=== PATIENT | female | born 1985 ===

== ENCOUNTER → 2020-02-10 11:11 | Outpatient (BNVA) | payer OTHER, SELFPAY | PROVIDERS: PCP Family Medicine; Referring Provider Family Medicine; Visit Provider Internal Medicine Gastroenterology | DX: R10.13 Epigastric pain (principal); Z86.19 Personal history of other infectious and parasitic diseases | CPT/HCPCS: 99203 ==

== ENCOUNTER 2020-02-23 11:15 | Outpatient (REF) | payer OTHER, SELFPAY ==
[2020-02-23 13:22] LABS: COVID-19 Test Negative (Negative)
== END 2020-02-23 11:16 | disposition home or self-care (01) ==
LOC: HO.LAB 11:15
PROVIDERS: PCP Family Medicine; Visit Provider Internal Medicine
DX: Z20.828 Contact with and (suspected) exposure to other viral communicable diseases (principal)
CPT/HCPCS: 87635

== ENCOUNTER → 2020-02-27 08:31 | Outpatient (BNVA) | payer OTHER, SELFPAY | PROVIDERS: PCP Family Medicine; Visit Provider Internal Medicine Gastroenterology | DX: Z76.89 Persons encountering health services in other specified circumstances (principal) ==

== ENCOUNTER 2020-02-27 15:28 | Outpatient (REF) | payer OTHER, SELFPAY | END 2020-02-27 15:29 | disposition home or self-care (01) | LOC: HO.LNP 15:28 | PROVIDERS: Visit Provider Internal Medicine Gastroenterology | DX: R10.13 Epigastric pain (principal); Z11.0 Encounter for screening for intestinal infectious diseases | CPT/HCPCS: 83013 ==

== ENCOUNTER → 2020-03-13 09:06 | Outpatient (BNVA) | payer OTHER, SELFPAY | PROVIDERS: PCP Family Medicine; Referring Provider Family Medicine; Visit Provider Internal Medicine Gastroenterology | DX: R10.13 Epigastric pain (principal); A04.8 Other specified bacterial intestinal infections; Z88.1 Allergy status to other antibiotic agents; Z91.040 Latex allergy status; Z79.899 Other long term (current) drug therapy | CPT/HCPCS: 99212 ==

== ENCOUNTER 2020-03-13 12:19 | Outpatient (REF) | payer OTHER, SELFPAY ==
[2020-03-13 13:00] LABS: COVID-19 Test Negative (Negative)
== END 2020-03-13 12:20 | disposition home or self-care (01) ==
LOC: HO.LAB 12:19
PROVIDERS: PCP Family Medicine; Visit Provider Internal Medicine
DX: Z20.828 Contact with and (suspected) exposure to other viral communicable diseases (principal)
CPT/HCPCS: 87635

== ENCOUNTER 2020-05-18 14:25 | Outpatient (REF) | payer OTHER, SELFPAY ==
[2020-05-18 14:44] LABS: COVID-19 Test Negative (Negative)
== END 2020-05-18 14:26 | disposition home or self-care (01) ==
LOC: HO.EMPCOV 14:25
PROVIDERS: Visit Provider Internal Medicine
DX: Z20.822 Contact with and (suspected) exposure to COVID-19 (principal)
CPT/HCPCS: 36415; 87635; C9803

== ENCOUNTER 2020-05-24 09:01 | Day surgery (SDC) | payer OTHER, SELFPAY ==
--- NOTE | 2020-05-23 09:24 | HO.ANESPROP2 ---
Documented by User: Marlena Matthews 05/23/20 09:25 HPI - Anesthesia Eval Consult details Narrative: 34yo F for Upper Endoscopy [facility] Past Medical History Medical History Asthma H. pylori infection Family History Family History Mother High blood pressure Maternal Grandfather Brain cancer Heart disease Prostate cancer High blood pressure Diabetes Father Heart attack Stroke Maternal Grandfather History of cancer Surgical History Surgical History No significant past surgical history Social History Social History Alcohol intake: current Alcohol intake frequency: does not drink Smoking Status: Never smoker Use of substances other than those prescribed or required for medical reasons: No Advance Directives: No Advance Directives Information Provided: Yes Meds Allergies Allergy/AdvReac Type Severity Reaction Status Date / Time latex [LATEX] Allergy Mild HIVES Verified 05/24/20 09:24 amoxicillin Allergy Unknown itching Uncoded 10/29/18 00:00 clarithromycin Allergy Unknown itching Uncoded 10/29/18 00:00 Home Medications Medication Instructions Recorded Confirmed Type omeprazole 20 mg capsule,delayed 20 mg PO DAILY 02/10/20 03/13/20 History release Exam Exam Date and Time: May 23, [id number] Assessment and Plan Assessment Anesthesia Assessment: Chart Reviewed Documented by User: Lewis Gatica 05/24/20 09:27 [facility] Past Medical History Medical History Asthma H. pylori infection Family History Family History Mother High blood pressure Maternal Grandfather Brain cancer Heart disease Prostate cancer High blood pressure Diabetes Father Heart attack Stroke Maternal Grandfather History of cancer Surgical History Surgical History No significant past surgical history Social History Social History Alcohol intake: current Alcohol intake frequency: does not drink Smoking Status: Never smoker Use of substances other than those prescribed or required for medical reasons: No Advance Directives: No Advance Directives Information Provided: Yes Meds Allergies Allergy/AdvReac Type Severity Reaction Status Date / Time latex [LATEX] Allergy Mild HIVES Verified 05/24/20 09:24 amoxicillin Allergy Unknown itching Uncoded 10/29/18 00:00 clarithromycin Allergy Unknown itching Uncoded 10/29/18 00:00 Home Medications Medication Instructions Recorded Confirmed Type omeprazole 20 mg capsule,delayed 20 mg PO DAILY 02/10/20 03/13/20 History release Exam Airway Mallampati Class: II TM Dist: >3cm Neck ROM: Full
[2020-05-24 09:07] VITALS: BMI 34.5
[2020-05-24 09:12] VITALS: BP 130/87; PULSE 93; RESP 16; TEMP 36.6; O2SAT 99
[2020-05-24] MEDS: Lactated Ringers 1,000 ML 100 ML IVCONT (09:25)
--- NOTE | 2020-05-24 09:27 | PC.NURSE ---
Anesthesia notified patient unable to give urine for HCG but has IUD in place- Dr Gatica saw patient at bedside and gave okay to proceed without HCG urine
--- NOTE | 2020-05-24 09:32 | MHC.SHP ---
Pre-Procedural Eval Section B Chief Complaint: Epigastric Pain Relevant Family History (Specify if Yes): No Relevant Social History: None Present Medications: see Short Stay Collaborative assessment Medical History: Significant History (Asthma H. pylori infection) History of Previous Operations: No relevant previous surgery Allergies: Allergies Allergy/AdvReac Type Severity Reaction Status Date / Time latex [LATEX] Allergy Mild HIVES Verified 05/24/20 09:24 amoxicillin Allergy Unknown itching Uncoded 10/29/18 00:00 clarithromycin Allergy Unknown itching Uncoded 10/29/18 00:00 Review of Systems Sugical H&P ROS: Negative: Constitution, Cardiovascular, Respiratory, Neurological, Psychiatric, Hem-Onc, Allergic/Immunologic, Gastrointestinal, Genitourinary, Musculoskeletal, Integumentary, Endocrine and Eyes/Ears/Nose/Throat Exam Surgical H&P Exam: Normal: HEENT, Normal: Heart, Normal: Lungs, Normal: Extremities, Normal: Abdomen, Normal: Skin and Normal: Neurological Plan Diagnosis/Plan: Unchanged I have reviewed the history and physical and performed a pertinent physical examination on my patient. No changes have occurred unless specified.
--- NOTE | 2020-05-24 10:01 | PM.OP ---
Brief Operative Note Date of Service: 05/24/20 Pre-op diagnosis: epigastric pain Post-op diagnosis: same Procedure: see op note Surgeon: Heladoi Laura MD Anesthesia: MAC Estimated blood loss (mL): 0 Condition: stable Disposition: PACU
--- NOTE | 2020-05-24 10:01 | W.PM.OPN ---
Operative Note Operative Note Date of Service: 05/24/20 Narrative: Procedure Description: EGD FLEXIBLE TRANSORAL UPPER GASTROINTESTINAL ENDOSCOPY UPPER ENDOSCOPY Consent: Indications for the procedure and potential complications of bleeding, perforation, reaction to medications and missed diagnosis were discussed with the patient and informed consent was obtained. Instrument: Olympus GIF H 190 J mid size upper endoscope Monitoring: Vital signs and clinical assessment, continuous EKG monitoring, Pulse oximetry, Carbon Dioxide monitoring and blood pressure monitoring were done throughout the procedure. Procedure: The patient was placed in the left lateral decubitis position and pre-procedure medications were administered and a bite block was placed. The endoscope was inserted into the mouth and advanced under direct vision to the third part of duodenum. A careful inspection was made as the upper endoscope was withdrawn including a retroflexed examination of the proximal stomach; Findings and interventions are described below. Findings: Larynx:normal Esophagus: GE junction at 36 cm, diaphragm hiatus at 36 cm, no varices or esophagitis. Stomach: Patchy gastric erythema zia mid body. Biopsies were obtained. Grade 2 flap valve on retroflexed examination of the cardia. bx also taken for H pylori culture and sensitivity Duodenum: Normal bulb and descending duodenum, bx taken Intervention: Biopsies as noted above Impression/Findings: gastritis PLAN: await results add carafate see if helps sx
[2020-05-24 10:08] VITALS: BP 106/69; PULSE 105; RESP 18; TEMP 36.7; O2SAT 99
[2020-05-24 10:23] VITALS: BP 121/84; PULSE 79; RESP 18; O2SAT 99
== END 2020-05-24 10:52 | disposition home or self-care (01) ==
PROVIDERS: PCP Family Medicine; Visit Provider Internal Medicine Gastroenterology
PROC: 0DJ08ZZ Inspection of Upper Intestinal Tract, Via Natural or Artificial Opening Endoscopic (ICD-10-PCS; CPT 43235; principal; 2020-05-24 10:20)
DX: K29.50 Unspecified chronic gastritis without bleeding (principal); B96.81 Helicobacter pylori [H. pylori] as the cause of diseases classified elsewhere; K44.9 Diaphragmatic hernia without obstruction or gangrene; J45.909 Unspecified asthma, uncomplicated; Z79.899 Other long term (current) drug therapy; Z88.1 Allergy status to other antibiotic agents; Z91.040 Latex allergy status
CPT/HCPCS: 43239; 36415; 88305; 88342

== ENCOUNTER 2020-06-04 07:35 | Outpatient (REF) | payer OTHER, SELFPAY ==
[2020-06-04 07:58] LABS: COVID-19 Test Negative (Negative)
== END 2020-06-04 07:36 | disposition home or self-care (01) ==
LOC: HO.EMPCOV 07:35
PROVIDERS: Visit Provider Internal Medicine
DX: Z20.822 Contact with and (suspected) exposure to COVID-19 (principal)
CPT/HCPCS: 36415; 87635; C9803

== ENCOUNTER → 2020-06-08 09:52 | Outpatient (BNVA) | payer OTHER, SELFPAY | PROVIDERS: PCP Family Medicine; Visit Provider Internal Medicine Gastroenterology ==

== ENCOUNTER 2020-06-14 09:40 | Emergency (ER) | payer OTHER, SELFPAY ==
--- NOTE | 2020-06-14 09:55 | ED.ALLEREA ---
HPI - Allergic Reaction General Chief complaint: Allergic Reaction Stated complaint: allergic reaction Time Seen by Provider: 06/14/20 09:55 Source: patient Mode of arrival: ambulatory Limitations: no limitations History of Present Illness HPI narrative: 34 y/o female with recurrent H. pylori infection presenting with sensation of throat swelling and itching after taking her amoxicillin and clarithrymycin this morning. She is on day 7 of therapy and was diagnosed on EGD performed 05/24/20. She reports a history of similar reaction in the past to this treatment and it needed to modified in the past. She took Claritin prior to arrival. She states she had difficulty swallowing the pill because of swelling in her throat. She denies facial or oral swelling, no SOB or wheezing. MD complaint: allergic reaction Related Data Home Medications Medication Instructions Recorded Confirmed omeprazole 20 mg capsule,delayed 20 mg PO DAILY 02/10/20 03/13/20 release Previous Rx's Medication Instructions Recorded sucralfate 100 mg/mL oral 10 ml PO BID #420 ml 02/10/20 suspension sucralfate [Carafate] 10 ml PO BID #420 ml 05/24/20 amoxicillin 500 mg capsule 1,000 mg PO BID 10 Days #40 cap 05/28/20 clarithromycin 500 mg tablet 500 mg PO BID 10 Days #20 tab 05/28/20 metronidazole 500 mg tablet 500 mg PO TID 10 Days #30 tab 05/28/20 ondansetron 4 mg disintegrating 4 mg PO Q8H PRN #30 tab 05/28/20 tablet pantoprazole 40 mg tablet,delayed 40 mg PO BID 10 Days #20 tab 05/28/20 release fluconazole 100 mg tablet 100 mg PO DAILY #3 tab 05/30/20 Allergies Allergy/AdvReac Type Severity Reaction Status Date / Time latex [LATEX] Allergy Mild HIVES Verified 05/24/20 09:24 amoxicillin Allergy Unknown itching Uncoded 10/29/18 00:00 clarithromycin Allergy Unknown itching Uncoded 06/08/20 09:52 hives Review of Systems Review of Systems: Constitutional: No Fever, No Chills ENT/Mouth: No sore throat, No Rhinorrhea, + Swallowing Difficulty Eyes: No Eye Pain, No Swelling, No Redness Cardiovascular: No Chest Pain, No SOB Respiratory: No Cough, No Sputum, No Wheezing, No dyspnea Gastrointestinal: + Nausea, No Vomiting, No Diarrhea, No abdominal Pain Skin: No Skin Lesions, No rash Neuro: No Weakness, No Numbness, No Dizziness, No Headache Psych: + Anxiety/Panic, No Depression Heme/Lymph: No Bruising, No Lymphadenopathy PMFSH Past Medical History Attestation statement: The following information was validated with the patient. Medical History Asthma H. pylori infection Surgical History History of esophagogastroduodenoscopy (EGD) No significant past surgical history Family History Family History Mother High blood pressure Maternal Grandfather Brain cancer Heart disease Prostate cancer High blood pressure Diabetes Father Heart attack Stroke Maternal Grandfather History of cancer Social History Social History (Updated 06/08/20 @ 09:55 by Jenna Cullen) Household Members: Spouse and Children Alcohol intake: current Alcohol intake frequency: does not drink Smoking Status: Never smoker Advance Directives: No Advance Directives Information Provided: No Physical Exam Vital Signs: Vital Signs: Last Vital Signs Temp 97.0 F 06/14/20 09:58 Pulse 86 06/14/20 09:58 Resp 18 06/14/20 09:58 BP 114/80 06/14/20 09:58 Pulse Ox 98 06/14/20 09:58 Body Mass Index 34.9 Appearance: Alert. Oriented X3. No acute distress. Eyes: Pupils equal, round and reactive to light. ENT: Pharynx normal. No lip or posterior orpharynx edema. uvula midline. normal voice. Neck: Normal inspection. Neck supple. CVS: Normal heart rate and rhythm. Pulses normal. Respiratory: No respiratory distress. Breath sounds normal. Skin: Skin warm and dry. Normal skin color. Normal skin turgor. No rashes. Extremities: No lower extremity edema. Atraumatic. Neuro: Oriented X 3. No motor deficit. No sensory deficit. Course Course Course Narrative: 34 y/o female presenting with allergic reaction after taking amoxicillin and clarithromycin for H. pylori. Reports improvement in throat swelling but is feeling itchy and hot now. Exam is reassuring but unable to visualize where she reports swelling is felt. Her voice is normal and she is in no respiratory distress. Will give Benadryl and Prednisone now and monitor closely. Will need to modify her H. pylori treatment. Reevaluation(s) Reevaluation #1: patient is feeling better after medications. TT Dr. Laura for recommendations who would like to stop antibiotic treatment and have her follow up in the office in 4 weeks to assess for eradication of H. pyolri. this was discussed with the patient who agrees with plan. Stable for d/c. Consultations Consultation #1: GI - Dr. Laura Discharge Plan Discharge Clinical Impression: Allergic reaction Qualifiers: Encounter type: initial encounter Qualified Code(s): T78.40XA - Allergy, unspecified, initial encounter Patient Disposition: Home, Self-Care Instructions: Helicobacter Pylori (ED), General Allergic Reaction (ED) Additional Instructions: STOP taking the previously prescribed Amoxicillin and Clarithromycin treatment for H. pylori per Dr. Laura recommendations. Take Benadryl 25-50 mg every 6 hours as needed for itching and sensation of throat swelling. Continue taking omeprazole - recommend increasing dose to 20 mg two times per day. Recommend Pepto Bismol two times per day. Follow up with Dr. Laura in 4 weeks. Prescriptions: No Action metronidazole 500 mg tablet 500 mg PO TID 10 Days Qty: 30 RF: 0 pantoprazole 40 mg tablet,delayed release (DR/EC) 40 mg PO BID 10 Days Qty: 20 RF: 0 clarithromycin 500 mg tablet 500 mg PO BID 10 Days Qty: 20 RF: 0 amoxicillin 500 mg capsule 1,000 mg PO BID 10 Days Qty: 40 RF: 0 ondansetron 4 mg tablet,disintegrating 4 mg PO Q8H PRN (Reason: nausea and vomiting) Qty: 30 RF: 0 fluconazole [Diflucan] 100 mg tablet 100 mg PO DAILY Qty: 3 RF: 0 sucralfate [Carafate] 100 mg/mL suspension 10 ml PO BID Qty: 420 RF: 3 omeprazole 20 mg capsule,delayed release(DR/EC) 20 mg PO DAILY RF: 0 sucralfate [Carafate] 100 mg/mL suspension 10 ml PO BID Qty: 420 RF: 2 Referrals: Heladio Laura MD [Physician] - 07/12/20 (f/u H. pylori) Stand Alone Forms: Work/School Release
[2020-06-14 09:58] VITALS: BP 114/80; PULSE 86; RESP 18; TEMP 36.1; O2SAT 98; BMI 34.9
[2020-06-14] MEDS: diphenhydrAMINE HCL 25 MG TABLET 50 MG PO (10:33)
[2020-06-14] MEDS: predniSONE 20 MG TABLET 40 MG PO (10:33)
== END 2020-06-14 13:00 | disposition home or self-care (01) ==
PROVIDERS: Emergency Provider Emergency Medicine; PCP Family Medicine
DX: T78.49XA Other allergy, initial encounter (principal); T36.3X5A Adverse effect of macrolides, initial encounter; R13.10 Dysphagia, unspecified; Y92.009 Unspecified place in unspecified non-institutional (private) residence as the place of occurrence of the external cause; Z79.899 Other long term (current) drug therapy
CPT/HCPCS: 99283; Q0163

== ENCOUNTER 2020-06-16 07:36 | Outpatient (REF) | payer OTHER, SELFPAY ==
[2020-06-16 07:58] LABS: COVID-19 Test Negative (Negative); IDNOW Serial# 55D5AD1C
== END 2020-06-16 07:37 | disposition home or self-care (01) ==
LOC: HO.EMPCOV 07:36
PROVIDERS: Visit Provider Internal Medicine
DX: Z20.822 Contact with and (suspected) exposure to COVID-19 (principal)
CPT/HCPCS: 87635; C9803

== ENCOUNTER 2020-06-23 10:09 | Outpatient (REF) | payer OTHER, SELFPAY ==
[2020-06-23 10:29] LABS: COVID-19 Test Negative (Negative)
== END 2020-06-23 10:10 | disposition home or self-care (01) ==
LOC: HO.EMPCOV 10:09
PROVIDERS: Visit Provider Internal Medicine
DX: Z20.822 Contact with and (suspected) exposure to COVID-19 (principal)
CPT/HCPCS: 36415; 87635; C9803

== ENCOUNTER 2020-07-16 06:12 | Emergency (ER) | payer OTHER, SELFPAY ==
[2020-07-16 06:23] VITALS: BP 106/68; PULSE 69; RESP 18; TEMP 37; O2SAT 97; BMI 36.2
--- NOTE | 2020-07-16 06:44 | ED_ITS ---
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 No nausea, no vomiting, no photophobia. Patient has no confirmed exposure to sick contact. Related Data Home Medications Medication Instructions Recorded Confirmed omeprazole 20 mg capsule,delayed 20 mg PO DAILY 02/10/20 03/13/20 release Previous Rx's Medication Instructions Recorded sucralfate 100 mg/mL oral 10 ml PO BID #420 ml 02/10/20 suspension sucralfate [Carafate] 10 ml PO BID #420 ml 05/24/20 amoxicillin 500 mg capsule 1,000 mg PO BID 10 Days #40 cap 05/28/20 clarithromycin 500 mg tablet 500 mg PO BID 10 Days #20 tab 05/28/20 metronidazole 500 mg tablet 500 mg PO TID 10 Days #30 tab 05/28/20 ondansetron 4 mg disintegrating 4 mg PO Q8H PRN #30 tab 05/28/20 tablet pantoprazole 40 mg tablet,delayed 40 mg PO BID 10 Days #20 tab 05/28/20 release fluconazole 100 mg tablet 100 mg PO DAILY #3 tab 05/30/20 Allergies Allergy/AdvReac Type Severity Reaction Status Date / Time latex [LATEX] Allergy Mild HIVES Verified 07/16/20 06:26 amoxicillin Allergy Unknown itching Uncoded 07/16/20 06:26 clarithromycin Allergy Unknown itching Uncoded 07/16/20 06:26 hives Review of Systems Review of Systems: All other systems are reviewed and are negative Constitutional: Reports as per HPI and Reports no additional constitutional complaints Eyes: Reports as per HPI and Reports no additional eye complaints Reports system reviewed and no additional complaints, except as documented Cardiovascular: Reports as per HPI and Reports no additional cardiovascular c omplaints Respiratory: Reports as per HPI and Reports no additional respiratory complaints Gastrointestinal: Reports as per HPI and Reports no additional gastrointestinal complaints Genitourinary: Reports no additional female genitourinary complaints Musculoskeletal: Reports no additional musculoskeletal complaints Skin/Breast: Reports system reviewed and no additional complaints, except as docu Psychiatric: Reports no additional psychiatric complaints Endocrine: Reports no additional endocrine complaints Hematologic/Lymphatic: Reports no additional hematologic/lymphatic complaints Allergic/Immunologic: Reports no additional allergic/immunologic complaints Reports system reviewed and no additional complaints, except as documented and Reports Abnormal speech present [facility] Past Medical History Medical History Asthma H. pylori infection Surgical History History of esophagogastroduodenoscopy (EGD) No significant past surgical history Family History Family History Mother High blood pressure Maternal Grandfather Brain cancer Heart disease Prostate cancer High blood pressure Diabetes Father Heart attack Stroke Maternal Grandfather History of cancer Social History Social History Household Members: Spouse and Children Alcohol intake: current Alcohol intake frequency: does not drink Smoking Status: Never smoker Advance Directives: No Physical Exam Vital Signs: Vital Signs: Last Vital Signs Temp 98.6 F 07/16/20 06:23 Pulse 69 07/16/20 06:23 Resp 18 07/16/20 06:23 BP 106/68 07/16/20 06:23 Pulse Ox 97 07/16/20 06:23 Body Mass Index 36.2 Vital signs have been reviewed as appeared to be correct. Blood pressure normal. Heart rate normal. Respiration rate normal. Temperature normal. Oxygen saturation normal. Appearance: Alert. Oriented X3. No acute distress. Head: Normal external exam. Normocephalic. Atraumatic. No Freeman signs noted. No raccoon eyes noted Eyes: PERRLA. EOMI. Conjunctiva and sclera normal. Eyelids normal. ENT: TM's Normal. Pharyngeal erythema, no exudate. Uvula midline. Moist mucous membranes. No trismus noted. No drooling noted. No muffled voice noted. Neck: Normal inspection. Neck supple. FROM. No adenopathy. Thyroid Normal. No meningeal signs. Right side neck tenderness due to muscle spasm. CVS: Normal heart rate and rhythm. Heart sound normal. No murmurs noted. Pulses normal throughout. Respiratory: No respiratory distress. Painless inspiration. Breath sounds normal. No wheezes/rales/rhonchi noted. Chest nontender. No accessory muscle usage noted or decreased air movement noted. Abdomen: Soft and nontender. Bowel sounds normal in all 4 quadrants. No distention noted. No organomegaly noted. No visible injury noted. Back: No CVA tenderness. Full range of motion noted. Skin: Skin warm and dry. Normal skin color. Normal skin turgor. No rashes/lesions/lacerations noted. Extremities: No lower extremity edema. Extremities exhibit normal range of motion. Extremities nontender. Neuro: Oriented X 3. No motor deficit. No sensory deficit. Reflexes normal. Course Course Course Narrative: Assessment and plan. 34-year-old female came in with right-sided neck pain for 2 days, patient also felt flu-like symptoms, and sore throat. Patient had a negative rapid strep, negative for COVID and flu and RSV. Patient vital signs and physical exam not suggestive for meningitis. Physical exam is more consistent with muscle spasm will discharge the patient on muscle relaxant, continue with heating pad. Medical Decision Making Lab Data Labs: Lab Results 07/16/20 Range/Units 06:31 Coronavirus (PCR) NEGATIVE (Negative) Influenza Type A (PCR) NEGATIVE (Negative) Influenza Type B (PCR) NEGATIVE (Negative) RSV RNA Qual (PCR) NEGATIVE (Negative) Discharge Plan Discharge Clinical Impression: Spasm of cervical paraspinous muscle Patient Disposition: Home, Self-Care Instructions: Spasmodic Torticollis (ED) Prescriptions: No Action metronidazole 500 mg tablet 500 mg PO TID 10 Days Qty: 30 RF: 0 pantoprazole 40 mg tablet,delayed release (DR/EC) 40 mg PO BID 10 Days Qty: 20 RF: 0 clarithromycin 500 mg tablet 500 mg PO BID 10 Days Qty: 20 RF: 0 amoxicillin 500 mg capsule 1,000 mg PO BID 10 Days Qty: 40 RF: 0 ondansetron 4 mg tablet,disintegrating 4 mg PO Q8H PRN (Reason: nausea and vomiting) Qty: 30 RF: 0 fluconazole [Diflucan] 100 mg tablet 100 mg PO DAILY Qty: 3 RF: 0 sucralfate [Carafate] 100 mg/mL suspension 10 ml PO BID Qty: 420 RF: 3 omeprazole 20 mg capsule,delayed release(DR/EC) 20 mg PO DAILY RF: 0 sucralfate [Carafate] 100 mg/mL suspension 10 ml PO BID Qty: 420 RF: 2
[2020-07-16 07:24] LABS: Influenza A PCR NEGATIVE (Negative); Influenza B PCR NEGATIVE (Negative); Resp Syncy Virus RNA Qual PCR NEGATIVE (Negative); SARS COV2 PCR INHOUSE NEGATIVE (Negative)
== END 2020-07-16 08:08 | disposition home or self-care (01) ==
PROVIDERS: Emergency Medicine; Emergency Provider Emergency Medicine; PCP Family Medicine
DX: G24.3 Spasmodic torticollis (principal); J02.9 Acute pharyngitis, unspecified; Z20.822 Contact with and (suspected) exposure to COVID-19; J45.909 Unspecified asthma, uncomplicated
CPT/HCPCS: 0241U; 36415; 87071; 87880; 99283

== ENCOUNTER 2020-07-23 08:04 | Outpatient (REF) | payer OTHER, SELFPAY | END 2020-07-23 08:05 | disposition home or self-care (01) | LOC: HO.CT 08:04 | PROVIDERS: Visit Provider Internal Medicine Gastroenterology | DX: Z13.89 Encounter for screening for other disorder (principal) ==

== ENCOUNTER 2020-07-31 12:34 | Outpatient (REF) | payer OTHER, SELFPAY ==
--- NOTE | ~2020-07-31 | CT_ITS ---
EXAMINATION: CT ENTEROGRAPHY ABDOMEN AND PELVIS WITH CONTRAST CLINICAL INFORMATION: Periumbilical pain COMPARISON: Previous abdominal ultrasound June [address] of the abdomen and pelvis August 2018 TECHNIQUE: Study performed with oral VoLumen (1350 mL) and 480 mL of water to distend the abdomen. The patient was injected with 85 mL Omnipaque 350 intravenous contrast which was administered without adverse effect. Coronal and sagittal reformatted images were obtained at the technologist's workstation. This CT examination was performed using dose optimization techniques as appropriate, variously including the following: *Automated exposure control *Adjustment of mA and/or kV according to patient size (this includes techniques or standardized protocols for targeted exams where dose is matched to indication/reason for exam; i.e. extremities or head) *Use of iterative reconstruction technique DLP: 507 mGy-cm FINDINGS: GASTROINTESTINAL FINDINGS: Stomach: Well-distended and normal in appearance. Small intestine: Satisfactorily distended and normal in appearance. Large intestine: Well-distended and normal in appearance. No perirectal changes demonstrated. The appendix is normal. Additional findings: No abnormal enhancement of the vasa recta or significant mesenteric or retroperitoneal lymphadenopathy is seen. No abdominal abscess or fistulous tract demonstrated. ABDOMINAL AND PELVIC CT FINDINGS: Liver, gallbladder, biliary tract: Normal Pancreas: Normal Spleen: Normal Adrenal glands and kidneys: The adrenal glands are normal. There is cortical thinning or scarring in the anterior lower pole of the left kidney. The kidneys are otherwise normal. Ureters and bladder: Normal Pelvis: There is an IUD in the uterus in satisfactory position. Adnexa appear unremarkable. Lymphovascular structures: Normal Bones: Normal Lung bases: Normal CT/CT enterography IMPRESSION: Normal CT enterography exam. There is mild cortical thinning or scarring in the anterior lower pole of the left kidney. There is an IUD in the uterus in satisfactory position.
[2020-07-31] MEDS: Sorbitol/Mannit/Xanth Imaging 500 ML LIQUID 1500 ML PO (15:56)
== END 2020-07-31 12:35 | disposition home or self-care (01) ==
LOC: HO.US 12:34
PROVIDERS: PCP Family Medicine; Visit Provider Internal Medicine Gastroenterology
DX: R10.33 Periumbilical pain (principal)
CPT/HCPCS: 74177; Q9967

== ENCOUNTER 2020-09-04 07:51 | Outpatient (REF) | payer OTHER, SELFPAY ==
[2020-09-04 11:11] LABS: Glucose Urine UA NEG (NEG); Leukocyte Esterase Urine NEG (NEG); Nitrite Urine NEG (NEG); PH 6.5 (5.0-8.0); Specific Gravity - Urine 1.025 (1.005-1.025); Urine Blood TRACE (NEG); Urine Ketones NEG (NEG); Urine Protein NEG (NEG-TRACE)
[2020-09-04 11:12] LABS: Appearance Urine HAZY; Color Urine YELLOW
[2020-09-04 11:17] LABS: Anion Gap 13 (12-20); Blood Urea Nitrogen 13 mg/dL (9-16); Calcium 9.3 mg/dL (8.4-10.2); Carbon Dioxide 26 mmol/L (22-29); Chloride 104 mmol/L (96-108); Estimated Glomerular Filt Rate > 60; Glucose Random 80 mg/dL (60-115); Potassium 4.5 mmol/L (3.3-5.1); Sodium 138 mmol/L (135-145)
[2020-09-04 12:09] LABS: Bacteria Urine TRACE /LPF; Mucus Urine 2+ /LPF; Squamous Epithelial Cell Urine 2+ /LPF; WBC Urine 0-2 /HPF (0-4)
== END 2020-09-04 07:52 | disposition home or self-care (01) ==
LOC: HO.LAB 07:51
PROVIDERS: PCP Family Medicine; Visit Provider Family Medicine
DX: N28.89 Other specified disorders of kidney and ureter (principal)
CPT/HCPCS: 36415; 80048; 81001

== ENCOUNTER 2020-09-18 11:39 | Outpatient (REF) | payer OTHER, SELFPAY ==
[2020-09-18 11:59] LABS: COVID-19 Test Negative (Negative)
== END 2020-09-18 11:40 | disposition home or self-care (01) ==
LOC: HO.EMPCOV 11:39
PROVIDERS: Visit Provider Internal Medicine
DX: Z20.822 Contact with and (suspected) exposure to COVID-19 (principal)
CPT/HCPCS: 36415; 87635; C9803

== ENCOUNTER → 2020-10-15 07:56 | Outpatient (REF) | payer OTHER, SELFPAY ==
--- NOTE | ~2020-10-15 | NM_ITS ---
EXAMINATION: RADIONUCLIDE SOLID FOOD GASTRIC EMPTYING 4-HOUR STUDY CLINICAL INFORMATION: Early satiety. COMPARISON: No previous gastric emptying study is available for comparison. TECHNIQUE: A standard meal consisting of 4 oz of Egg Beaters brand tagged with 690 microcuries Tc-99m Sulfur Colloid, 8 oz water and 2 slices of toast with jelly was administered orally to the patient. Images were obtained using a dual head gamma camera in the anterior and posterior projections over of the stomach immediately post ingestion and at hourly intervals up to 3 hours post ingestion. Images were not obtained at 4 hours due to the minimal retention at 3 hours. The anterior and posterior counts at each time interval were averaged using the geometric mean and expressed as percentage of the immediate post ingestion counts. FINDINGS: There is good visualization of activity in the stomach immediately post ingestion. As the study progresses, there is good clearance of activity from the stomach and visualization of progressively increasing small bowel activity. By the end of the study, there is almost no retention noted in the stomach. Retention in the stomach at each time interval was: 1 hour 72% (normal 37%-90%) 2 hours 29% (normal 30%-60%) 3 hours 7% 4 hours (Not Obtained) (normal 0%-10%) NM/NM gastric emptying study IMPRESSION: Normal solid food gastric emptying study.
== END ==
LOC: HO.NUCMED 07:56
PROVIDERS: PCP Family Medicine; Visit Provider Internal Medicine Gastroenterology
DX: R68.81 Early satiety (principal)
CPT/HCPCS: 78264; A9541

== ENCOUNTER 2020-10-26 11:33 | Outpatient (REF) | payer OTHER, SELFPAY ==
[2020-10-27 14:57] LABS: H Pylori Breath Test DETECTED (NOT DETECTED)
== END 2020-10-26 11:34 | disposition home or self-care (01) ==
LOC: HO.LNP 11:33
PROVIDERS: PCP Family Medicine; Visit Provider Internal Medicine Gastroenterology
DX: R10.13 Epigastric pain (principal); Z11.0 Encounter for screening for intestinal infectious diseases
CPT/HCPCS: 83013

== ENCOUNTER 2020-12-11 17:00 | Outpatient (RCR) | payer OTHER, SELFPAY | END 2021-03-18 14:17 | disposition home or self-care (01) | LOC: HO.PT 17:00 | PROVIDERS: PCP Family Medicine | DX: M25.512 Pain in left shoulder (principal) | CPT/HCPCS: 97033; 97110; 97140; 97161 ==

== ENCOUNTER 2020-12-13 07:56 | Outpatient (REF) | payer OTHER, SELFPAY ==
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
== END 2020-12-13 07:57 | disposition home or self-care (01) ==
LOC: HO.HMGCX 07:56
PROVIDERS: PCP Family Medicine
DX: M25.532 Pain in left wrist (principal)
CPT/HCPCS: 73110; 73130

== ENCOUNTER → 2021-01-16 12:11 | Outpatient (BNVA) | payer OTHER, SELFPAY | PROVIDERS: Visit Provider Orthopaedic Surgery | DX: M25.532 Pain in left wrist (principal); R20.0 Anesthesia of skin; R20.2 Paresthesia of skin | CPT/HCPCS: 99202 ==

== ENCOUNTER 2021-01-24 12:34 | Outpatient (REF) | payer OTHER, SELFPAY ==
[2021-01-25 15:25] LABS: H Pylori Breath Test Positive (Negative)
== END 2021-01-24 12:35 | disposition home or self-care (01) ==
LOC: HO.LNP 12:34
PROVIDERS: Visit Provider Internal Medicine Gastroenterology
DX: R10.13 Epigastric pain (principal)
CPT/HCPCS: 83013

== ENCOUNTER 2021-04-03 14:50 | Outpatient (REF) | payer OTHER, SELFPAY ==
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
== END 2021-04-03 14:51 | disposition home or self-care (01) ==
LOC: HO.MRI 14:50
PROVIDERS: Visit Provider Orthopaedic Surgery
DX: M25.532 Pain in left wrist (principal)
CPT/HCPCS: 73221

== ENCOUNTER → 2021-05-15 13:34 | Outpatient (BNVA) | payer OTHER, SELFPAY | PROVIDERS: PCP Family Medicine; Visit Provider Physician Assistant ==

== ENCOUNTER 2021-05-28 09:10 | Outpatient (REF) | payer OTHER, SELFPAY ==
--- NOTE | ~2021-05-28 | CT_ITS ---
EXAMINATION: CT ABDOMEN AND PELVIS WITH CONTRAST CLINICAL INFORMATION: Nonspecific mesenteric lymphadenitis COMPARISON: Previous CT scans of the abdomen and pelvis, most recent enterography exam July 2020 TECHNIQUE: Multidetector volumetric images were obtained from the superior aspect of the liver through the pubic symphysis following administration 85 mL of Omnipaque 350 intravenous contrast. Sagittal and coronal reformatted images were obtained on the technologist's workstation. Oral contrast: Yes This CT examination was performed using dose optimization techniques as appropriate, variously including the following: *Automated exposure control *Adjustment of mA and/or kV according to patient size (this includes techniques or standardized protocols for targeted exams where dose is matched to indication/reason for exam; i.e. extremities or head) *Use of iterative reconstruction technique DLP: 538 mGy-cm FINDINGS: LUNG BASES: The visualized lung bases are unremarkable. LIVER, GALLBLADDER, AND BILIARY TREE: The liver is normal in size, shape, and attenuation. No focal hepatic lesion or biliary ductal dilatation is present. The gallbladder is unremarkable with no evidence of radiopaque gallstones, gallbladder wall thickening, or obvious pericholecystic inflammatory changes. PANCREAS: Unremarkable. SPLEEN: Unremarkable. ADRENAL GLANDS: Unremarkable. KIDNEYS AND URETERS: There is mild cortical thinning in the anterior lower pole left kidney versus lobulation. The kidneys are otherwise unremarkable. BLADDER: Unremarkable. GASTROINTESTINAL TRACT: The small and large bowel are unremarkable. The appendix is unremarkable. The stomach is unremarkable. ABDOMINAL WALL: No significant hernia is appreciated. LYMPH NODES: There are small, small bowel mesentery lymph nodes. No enlarged lymph nodes are seen. There is no ascites or fluid in the small bowel mesentery. No small bowel mesentery fat stranding is seen. VASCULAR: Unremarkable. PELVIC VISCERA: There is an IUD in the uterus in satisfactory position. Uterus and adnexa are otherwise unremarkable. OSSEOUS STRUCTURES: Unremarkable. CT/CT abdomen pelvis w con IMPRESSION: Small, small bowel mesentery lymph nodes. No enlarged lymph nodes, fluid or fat stranding in the small bowel mesentery. IUD in the uterus in satisfactory position. Fleischner guidelines were followed.
[2021-05-28] MEDS: iohexoL 350 MG/ML 100 ML INFUS..BTL IV (11:15)
[2021-05-28] MEDS: Barium Sulfate Oral (Mocha) 450 ML ORAL.SUSP PO (11:16)
== END 2021-05-28 09:11 | disposition home or self-care (01) ==
LOC: HO.CT 09:10
PROVIDERS: Visit Provider Internal Medicine Gastroenterology
DX: I88.0 Nonspecific mesenteric lymphadenitis (principal); R10.10 Upper abdominal pain, unspecified
CPT/HCPCS: 74177; Q9967

== ENCOUNTER → 2021-06-05 10:03 | Outpatient (BNVA) | payer OTHER, SELFPAY | PROVIDERS: PCP Family Medicine; Referring Provider Family Medicine; Visit Provider Surgery | DX: K42.9 Umbilical hernia without obstruction or gangrene (principal) | CPT/HCPCS: 99202 ==

== ENCOUNTER 2021-06-19 09:11 | Outpatient (REF) | payer OTHER, SELFPAY ==
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
== END 2021-06-19 09:12 | disposition home or self-care (01) ==
LOC: HO.NEURO 09:11
PROVIDERS: PCP Family Medicine; Visit Provider Orthopaedic Surgery
DX: R20.0 Anesthesia of skin (principal); R20.2 Paresthesia of skin
CPT/HCPCS: 95886; 95910

== ENCOUNTER → 2021-07-02 09:24 | Outpatient (BNVA) | payer OTHER, SELFPAY | PROVIDERS: PCP Family Medicine; Visit Provider Orthopaedic Surgery | DX: M79.602 Pain in left arm (principal); M79.642 Pain in left hand; M67.432 Ganglion, left wrist; G56.22 Lesion of ulnar nerve, left upper limb; R20.0 Anesthesia of skin; R20.2 Paresthesia of skin | CPT/HCPCS: 99212 ==

== ENCOUNTER 2021-07-26 10:32 | Day surgery (SDC) | payer OTHER, SELFPAY ==
[2021-07-23 15:06] VITALS: BMI 36.2
[2021-07-24 12:12] VITALS: BMI 36.1
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
[2021-07-26] VITALS (7 sets, daily range): BP systolic 91–123; BP diastolic 57–67; PULSE 56–82; RESP 14–16; TEMP 36.1–37.1; O2SAT 98
[2021-07-26 11:13] LABS: UPreg QC Valid YES; Urine Pregnancy NEGATIVE (NEGATIVE)
[2021-07-26] MEDS: Lactated Ringers 1,000 ML 100 ML IVCONT (11:24)
--- NOTE | 2021-07-26 14:30 | MHC.SHP ---
Pre-Procedural Eval Section A Date of Service: 07/26/21 Section B Chief Complaint: Umbilical hernia Details of Present Illness: Has chronic umbilical pain, as she had an umbilical hernia a previous CT scan in [facility], CT scan done here reviewed - very small fat containing umbilical hernia Relevant Family History (Specify if Yes): No Relevant Social History: None Present Medications: None Medical History: Significant History (Morbid obesity) Allergies: Allergies Allergy/AdvReac Type Severity Reaction Status Date / Time latex [LATEX] Allergy Severe HIVES Verified 07/24/21 11:52 clarithromycin Allergy Intermediate itching Uncoded 07/24/21 11:52 hives Review of Systems Sugical H&P ROS: Negative: Constitution, Cardiovascular, Respiratory, Neurological, Psychiatric, Hem-Onc, Allergic/Immunologic, Gastrointestinal, Genitourinary, Musculoskeletal, Integumentary, Endocrine and Eyes/Ears/Nose/Throat Exam Surgical H&P Exam: Normal: HEENT, Normal: Heart, Normal: Lungs, Normal: Extremities, Normal: Abdomen, Normal: Skin and Normal: Neurological Plan Diagnosis/Plan: Unchanged (Small fat containing umbilical hernia on CT scan) I have reviewed the history and physical and performed a pertinent physical examination on my patient. No changes have occurred unless specified.
--- NOTE | 2021-07-26 15:16 | W.PM.OPN ---
Operative Note Operative Note Date of Service: 07/26/21 Narrative: Preop diagnosis: Umbilical hernia Postop diagnosis: Umbilical hernia Procedure: Repair of umbilical hernia Surgeon: Ty Luciano MD grants assistant: ISABEL Yañez Patient is a 35 year female who had chronic complaints of umbilical pain. She had stated she had a CAT scan in [facility] showing an umbilical hernia. She had a CAT scan here in [place] as well and I had reviewed this and this had shown a very small fat containing hernia. She wanted to proceed with repair as she states that she feels that this hernia is bothering her with chronic pain at the area of the umbilicus. She understood the technique of the procedure. She was aware of the risks, benefits, and alternatives She was brought to the operating room. She was placed supine under general anesthesia via laryngeal mask airway. A surgical time-out was done. The abdomen is prepped and draped in usual sterile fashion. The patient received cefazolin 2 g IV preoperatively . I infiltrated the planned incision with lidocaine 1%. I made a transverse curvilinear supraumbilical incision using blade 15. This was carried down through the full-thickness of the skin and thick subcutaneous fat until I reached the fascia. I lifted the umbilicus off of the fascia and was able to visualize the hernia. This was fat containing. I dissected the hernia gently down to the fascial defect. By doing so was able to completely reduce this. The fascial defect was defined. This was about half 0.5cm in diameter. I therefore decided to not use a mesh because of the very small size of the hernia. I applied a Elly clamp at the fascial edges and closed this with a figure of 8 Dexon 0 stitch. I irrigated the area. The umbilicus was tacked down to the fascia with Dexon 3-0 stitch to re-create the dimple. The subcutaneous layer was reapposed with Dexon 3-0 interrupted sutures. Skin closure was achieved with Dexon 4-0 subcuticular running stitch. The incision was infiltrated with Marcaine 0.5% for postop analgesia. Dressings were applied. The procedure was completed. The patient tolerated procedure well. There were no complications noted. Initial and final counts of sponges instruments were correct. Estimated blood loss was about 5 cc. The patient was extubated without difficulty and transferred to the recovery room with stable vital signs.
== END 2021-07-26 16:37 | disposition home or self-care (01) ==
PROVIDERS: Nurse Practitioner; PCP Family Medicine; Visit Provider Surgery
PROC: (CPT 49585; principal; 2021-07-26 14:10)
DX: K42.9 Umbilical hernia without obstruction or gangrene (principal); K21.9 Gastro-esophageal reflux disease without esophagitis; J45.909 Unspecified asthma, uncomplicated; E66.01 Morbid (severe) obesity due to excess calories; Z68.36 Body mass index [BMI] 36.0-36.9, adult; Z79.51 Long term (current) use of inhaled steroids; Z79.899 Other long term (current) drug therapy; Z88.0 Allergy status to penicillin; Z91.040 Latex allergy status
CPT/HCPCS: 49585; 81025; J0690; J1100; J1885; J2250; J2405; J3010

== ENCOUNTER → 2021-08-05 11:39 | Outpatient (BNVA) | payer OTHER, SELFPAY | PROVIDERS: PCP Family Medicine; Referring Provider Family Medicine; Visit Provider Surgery | DX: Z48.815 Encounter for surgical aftercare following surgery on the digestive system (principal); Z87.19 Personal history of other diseases of the digestive system | CPT/HCPCS: 99212 ==

== ENCOUNTER → 2021-08-07 12:04 | Outpatient (BNVA) | payer OTHER, SELFPAY | PROVIDERS: Visit Provider Orthopaedic Surgery | DX: M25.532 Pain in left wrist (principal); M79.602 Pain in left arm; G56.22 Lesion of ulnar nerve, left upper limb | CPT/HCPCS: 99212 ==

== ENCOUNTER 2021-08-12 06:02 | Day surgery (SDC) | payer OTHER, SELFPAY ==
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
[2021-08-12 06:11] VITALS: BMI 36.4
[2021-08-12 06:18] VITALS: BP 121/73; PULSE 73; RESP 16; TEMP 36.4; O2SAT 96
[2021-08-12 06:25] LABS: UPreg QC Valid YES; Urine Pregnancy NEGATIVE (NEGATIVE)
[2021-08-12] MEDS: Lactated Ringers 1,000 ML 100 ML IVCONT (06:37)
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
[2021-08-12 08:50] VITALS: BP 126/63; PULSE 74; RESP 16; TEMP 36.2; O2SAT 98
[2021-08-12 08:55] VITALS: BP 125/84; PULSE 62; RESP 16; O2SAT 98
[2021-08-12 09:00] VITALS: BP 124/78; PULSE 63; RESP 16; O2SAT 97
--- NOTE | 2021-08-12 09:02 | MHC.SHP ---
Pre-Procedural Eval Section A Date of Service: 08/12/21 The patient is an INPATIENT: No Changes since office visit: No Cold of Flu in the past 2 weeks, No New Medical Problems, No Changes in Medication and No Patient answered all questions The History & Physical has been completed within 30 days and I have reviewed it.: Yes Section B Chief Complaint: ulnar nerve Allergies: Allergies Allergy/AdvReac Type Severity Reaction Status Date / Time latex [LATEX] Allergy Severe HIVES Verified 08/12/21 06:36 clarithromycin Allergy Intermediate itching Uncoded 08/07/21 12:16 hives Plan I have reviewed the history and physical and performed a pertinent physical examination on my patient. No changes have occurred unless specified.
--- NOTE | 2021-08-12 09:03 | W.PM.OPN ---
Operative Note Operative Note Date of Service: 08/12/21 Narrative: Operative Note Narrative: Preop diagnosis: 1. Left Cubital tunnel syndrome Postop diagnosis: Same Procedure: 1. Left Cubital Tunnel Release Surgeon: Laura Murphy MD Anesthesia: General Findings: Left Thickening and fibrosis about the ulnar nerve at the cubital tunnel Implants: none Tourniquet time: 19 minutes EBL: 5.0 ml Specimen: none Drains: None Complications: None Disposition: Brought to the recovery room in stable condition Plan: Follow-up in 10-14 days for wound check, and suture removal Indications: The patient is 35 years old with left cubital tunnel syndrome . The risks and benefits of operative treatment, including but not limited to risk of damage to blood vessels, nerves, tendons, infection, recurrence, persistent pain or numbness, incomplete resolution of preoperative symptoms, or need for further surgery were discussed with the patient and they wished to proceed with surgery. Procedure: Once consent was obtained patient was brought back to the operating suite and placed in the operating table in a supine position. Perioperative antibiotics and anesthesia was administered by the anesthesia team. The limb was prepped and draped in a standard surgical fashion, and a sterile tourniquet applied to the proximal aspect of the left upper extremity. The limb was elevated exsanguinated with Esmarch bandage and the tourniquet inflated to 250 mm of mercury for a total tourniquet time of 19 minutes. A 6 cm gently curved but longitudinally oriented incision was made centered over the cubital tunnel of the left upper extremity. Incision was made through the skin to the subcutaneous tissues using a # 15 Blade. I then dissected down to the level of the medial epicondyle and the cubital tunnel using tenotomy scissors. Care was taken to protect the lateral antebrachial cutaneous nerve. The ulnar nerve was identified just posterior to the medial intermuscular septum. The ulnar nerve was released in a proximal to distal direction using tenotomy in iris scissors while directly visualizing and protecting the ulnar nerve. Thickening and fibrosis was appreciated about the ulnar nerve as it passed through the cubital tunnel. The ulnar nerve was assessed as I passed the elbow through full flexion and extension and was found to remain stable within its groove. At this point the tourniquet was deflated and hemostasis obtained with a brief period of local pressure and bipolar electrocautery. The wound was copiously irrigated with normal saline. The subcutaneous layer was closed with 4-0 Vicryl suture, and the skin edges were reapproximated with 5-0 nylon suture. The wound was infiltrated with some 0.25% plain Marcaine for postop pain control and sterile dressings and a posterior splint was applied. The patient appears to have tolerated the procedure well and with no complications. All digits were well vascularized conclusion of the case.
[2021-08-12 09:05] VITALS: BP 134/79; PULSE 63; RESP 16; O2SAT 97
[2021-08-12 09:20] VITALS: BP 127/69; PULSE 64; RESP 18; TEMP 36.6; O2SAT 100
== END 2021-08-12 10:07 | disposition home or self-care (01) ==
PROVIDERS: Nurse Practitioner; PCP Family Medicine; Visit Provider Orthopaedic Surgery
PROC: (CPT 64718; principal; 2021-08-12 07:30)
DX: G56.22 Lesion of ulnar nerve, left upper limb (principal); M25.532 Pain in left wrist; M79.602 Pain in left arm; R20.0 Anesthesia of skin; J45.909 Unspecified asthma, uncomplicated; Z79.899 Other long term (current) drug therapy; Z88.8 Allergy status to other drugs, medicaments and biological substances; Z91.040 Latex allergy status; Z87.828 Personal history of other (healed) physical injury and trauma
CPT/HCPCS: 64718; 81025; J0690; J1100; J2250; J2405; J3010

== ENCOUNTER → 2021-08-28 14:22 | Outpatient (BNVA) | payer OTHER, SELFPAY | PROVIDERS: PCP Family Medicine; Visit Provider Orthopaedic Surgery | DX: Z47.89 Encounter for other orthopedic aftercare (principal); Z87.39 Personal history of other diseases of the musculoskeletal system and connective tissue | CPT/HCPCS: 99212 ==

== ENCOUNTER → 2021-12-04 13:33 | Outpatient (BNVA) | payer OTHER, SELFPAY | PROVIDERS: PCP Family Medicine; Visit Provider Orthopaedic Surgery | DX: M25.522 Pain in left elbow (principal); Z86.69 Personal history of other diseases of the nervous system and sense organs | CPT/HCPCS: 99212 ==

== ENCOUNTER 2022-04-07 14:22 | Outpatient (REF) | payer OTHER, SELFPAY ==
[2022-04-07 16:35] LABS: MANUAL DIFF FLAG NO
[2022-04-07 16:47] LABS: Basophils Percent Auto 0.3 % (0-2); Eosinophils Absolute Auto 0.1 X10*3/uL (0.0-0.4); Hematocrit 44.4 % (37.0-47.0); Hemoglobin 14.3 g/dl (12.0-16.0); Imm Gran Abs Auto 0.02 X10*3/uL (0.00-0.03); Imm Gran Pct Auto 0.2 % (0.0-0.4); Lymphocytes Absolute Auto 3.6 X10*3/uL (1.2-4.9); Lymphocytes Percent Auto 36.8 % (20-40); Mean Corpuscular HGB Conc 32.2 g/dl (31.0-35.0); Mean Corpuscular Hemoglobin 28.3 pg (27.0-33.0); Mean Corpuscular Volume 87.9 fL (80.0-98.0); Mean Platelet Volume 10.8 fL (9.4-12.3); Monocytes Absolute Auto 0.6 X10*3/uL (0.1-1.2); Monocytes Percent Auto 5.6 % (2-11); Neutrophils Absolute Auto 5.5 x10*3/uL (2.0-8.3); Neutrophils Percent Auto 56.1 % (45-73); Platelet Count 337 X10*3/uL (160-400); Red Blood Count 5.05 X10*6/uL (4.20-5.50); Red Cell Distribution Width 12.7 % (11.0-16.0); White Blood Count 9.8 X10*3/uL (4.8-10.8)
[2022-04-07 17:17] LABS: Alanine Aminotransferase 21 U/L (0-31); Albumin Level 4.4 g/dL (3.5-5.0); Alkaline Phosphatase 86 U/L (39-117); Anion Gap 10 (12-20); Aspartate Amino Transferase 14 U/L (5-31); Bilirubin Total 1.2 mg/dL (0.0-1.0); Blood Urea Nitrogen 8 mg/dL (9-16); Calcium 9.6 mg/dL (8.4-10.2); Carbon Dioxide 27 mmol/L (22-29); Chloride 102 mmol/L (96-108); Estimated Glomerular Filt Rate > 60; Ferritin 60 ng/mL (10-122); Glucose Random 83 mg/dL (60-115); Iron 95 mcg/dL (30-160); Lipase 28 U/L (8-78); Percent Iron Saturation 29 % (15-50); Potassium 4.4 mmol/L (3.3-5.1); Sodium 135 mmol/L (135-145); Total Iron Binding Capacity 325 mcg/dL (228-428); Total Protein 7.6 g/dL (6.5-8.0); Unsaturated Iron Binding 230 ug/dL; Vitamin D 25-OH Total 19.5 ng/mL (>30)
[2022-04-07 17:21] LABS: Appearance Urine Clear; Color Urine Yellow; Glucose Urine UA Negative (Negative); Leukocyte Esterase Urine Negative (Negative); Nitrite Urine Negative (Negative); PH 7.5 (5.0-9.0); Urine Blood Negative (Negative); Urine Ketones Negative (Negative); Urine Protein Negative (Neg-Trace)
[2022-04-07 17:30] LABS: Folate 9.9 ng/mL (> or = 4.0); Vitamin B12 626 pg/mL (200-900)
[2022-04-11 04:13] LABS: Zinc 79 mcg/dL (60-130)
[2022-04-11 14:38] LABS: Vitamin A 37 mcg/dL (38-98)
[2022-04-11 14:53] LABS: Alpha-Tocopherol 9.7 mg/L (5.7-19.9); Beta-Gamma Tocopherol 1.3 mg/L (<=4.3)
[2022-04-12 10:29] LABS: Nicotinamide <20 ng/mL; Vit B3 - Nicotinic Acid <20 ng/mL
[2022-04-12 14:28] LABS: Vitamin B1 7 nmol/L (8-30)
[2022-04-12 15:04] LABS: Vitamin B5 (Pantothenic Acid) 44 ng/mL (<275)
[2022-04-12 15:18] LABS: Vitamin C 0.5 mg/dL (0.3-2.7)
[2022-04-14 14:27] LABS: Vitamin K1 233 pg/mL (130-1500)
== END 2022-04-07 14:23 | disposition home or self-care (01) ==
LOC: HO.LAB 14:22
PROVIDERS: PCP Family Medicine; Referring Provider Family Medicine; Visit Provider Internal Medicine Gastroenterology
DX: R10.13 Epigastric pain (principal); R30.0 Dysuria; K75.81 Nonalcoholic steatohepatitis (NASH); K52.9 Noninfective gastroenteritis and colitis, unspecified
CPT/HCPCS: 36415; 80053; 81003; 82180; 82306; 82607; 82728; 82746; 83013; 83540; 83690; 84207; 84425; 84446; 84590; 84591; 84597; 84630; 85025; 99212

== ENCOUNTER 2022-04-15 09:23 | Outpatient (REF) | payer OTHER, SELFPAY ==
--- NOTE | ~2022-04-15 | US_ITS ---
EXAMINATION: US ABDOMEN COMPLETE CLINICAL INFORMATION: Epigastric pain. COMPARISON: Previous CT most recent May 2021 and ultrasound June 2019 TECHNIQUE: Real-time imaging of the abdominal viscera. FINDINGS: PANCREAS: Normal. ABDOMINAL AORTA: The proximal, mid, and distal segments are normal in caliber. INFERIOR VENA CAVA: Visualized portions are normal. LIVER: Normal. The liver is normal in size. The liver contour is normal. Parenchymal echogenicity is normal. No focal hepatic lesion. There is no intrahepatic biliary duct dilatation seen. GALLBLADDER: Normal. The gallbladder is physiologically distended without evidence of stones, sludge, polyps, wall thickening or pericholecystic fluid. COMMON BILE DUCT: Normal in caliber measuring 0.2 cm in diameter. RIGHT KIDNEY: Normal. No hydronephrosis. No renal calculi or focal parenchymal lesions. The kidney measures 10 cm in maximum dimension. LEFT KIDNEY: Normal. No hydronephrosis. No renal calculi or focal parenchymal lesions. The kidney measures 11.7 cm in maximum dimension. SPLEEN: Normal. The spleen measures 9.5 cm in maximum dimension. FREE FLUID: None. US/US abdomen complete IMPRESSION: Normal exam.
== END 2022-04-15 09:24 | disposition home or self-care (01) ==
LOC: HO.US 09:23
PROVIDERS: Visit Provider Internal Medicine Gastroenterology
DX: R10.13 Epigastric pain (principal); K52.9 Noninfective gastroenteritis and colitis, unspecified
CPT/HCPCS: 76700; 99211

== ENCOUNTER 2022-04-15 17:24 | Outpatient (REF) | payer OTHER, SELFPAY ==
[2022-04-16 14:48] LABS: H Pylori Breath Test Positive (Negative)
== END 2022-04-15 17:25 | disposition home or self-care (01) ==
LOC: HO.LNP 17:24
PROVIDERS: Visit Provider Internal Medicine Gastroenterology
DX: R10.13 Epigastric pain (principal); K52.9 Noninfective gastroenteritis and colitis, unspecified
CPT/HCPCS: 83013

== ENCOUNTER 2024-03-01 09:44 | Emergency (ER) | payer OTHER, SELFPAY ==
[2024-03-01 09:58] VITALS: BP 127/76; PULSE 76; RESP 16; TEMP 36.2; O2SAT 99; BMI 34.9
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
[2024-03-01] MEDS: Tetracaine HCl/PF 0.5% Oph Sol 4 ML DROPS 1 DROP EYE-RIGHT (12:22)
[2024-03-01] MEDS: Fluorescein Sodium STRIP 1 STRIP EYE-RIGHT (12:22)
[2024-03-01 12:26] VITALS: BP 127/76; PULSE 76; RESP 16; TEMP 36.2; O2SAT 99
== END 2024-03-01 12:27 | disposition home or self-care (01) ==
PROVIDERS: Emergency Provider Emergency Medicine; PCP Family Medicine
DX: S05.01XA Injury of conjunctiva and corneal abrasion without foreign body, right eye, initial encounter (principal); X58.XXXA Exposure to other specified factors, initial encounter; Y93.89 Activity, other specified; Y92.89 Other specified places as the place of occurrence of the external cause; Y99.8 Other external cause status
CPT/HCPCS: 99282; 99283